=== PATIENT | male | born 1940 | race Hispanic/Latino ===

== ENCOUNTER 2018-11-07 07:57 | Outpatient (CLI) | payer BC | END 2018-11-07 07:58 | disposition home or self-care (01) | LOC: RAD 07:57 ==

== ENCOUNTER 2019-01-01 07:48 | Outpatient (CLI) | payer BC | END 2019-01-01 07:49 | disposition home or self-care (01) | LOC: RAD 07:48 | DX: C61 Malignant neoplasm of prostate (principal) ==